=== PATIENT | male | born 1975 | race Caucasian/White ===

== ENCOUNTER 2018-03-29 23:24 | Emergency (ER) | payer MEDICARE ==
[2018-03-29] MEDS ORDERED: Etomidate 2 MG/ML 10 ML SDV IVPUSH ONE (23:49)
[2018-03-29] MEDS ORDERED: Rocuronium 10 MG/ML 10 ML Syringe IVPUSH ONE (23:50)
[2018-03-29] MEDS ORDERED: Labetalol 100 MG/20 ML MDV ONE (23:51)
[2018-03-29 23:53] LABS: CHLORIDE,CL 104 mEq/L (98-106); SODIUM,NA 142 mEq/L (136-145)
[2018-03-29] MEDS ORDERED: fentaNYL 100 MCG/2 ML SDV ONE (23:59)
[2018-03-30] MEDS ORDERED: Labetalol 100 MG/20 ML MDV IVPUSH ONE (00:05)
[2018-03-30] MEDS ORDERED: fentaNYL 100 MCG/2 ML SDV IVPUSH ONE (00:10)
[2018-03-30] MEDS ORDERED: Midazolam 1 MG/ML 2 ML SDV IVPUSH ONE (00:13)
[2018-03-30] MEDS ORDERED: Sodium Chloride 0.9% 250 ML ONE (00:27)
--- NOTE | 2018-03-30 01:04 | EDM.PDOC ---
ED HPI GENERAL MEDICAL PROBLEM - General Chief Complaint: Neuro Symptoms/Deficits Stated Complaint: unresponsive Time Seen by Provider: 03/29/18 23:25 Source of Information: Reports: EMS, Family History Limitations: Reports: Altered Mental Status - History of Present Illness INITIAL COMMENTS - FREE TEXT/NARRATIVE: Pt brought in by EMS after complaining of severe headache at home. Per he had headache and then stood up and fell to the floor unconscious. When EMS arrived he was unconscious and vomiting brown liquid. BP on scene was extremely elevated. Has history of untreated and uncontrolled hypertension. When arriving he is unresponsive, vomiting, right pupil was 5mm and fixed and the left is 1 mm and nonreactive. He has some decerebrate posturing to the upper extremities. Respirations are wet and maintaining his own sats with O2 at 6liters with sats of 98%. No purposeful movement noted. BP 280/120 on arrival here. EAvera activated. Pt has gurgling respirations. Pt was intubated with 7.5 mm ETT per EMS after 2 attempts. OG placement was done. Portable CXR did show good placement. Bilateral breathe sounds that were very wet noted. wilkerson placed with yellow returns, 2330 Dr. Messer from [facility] per phone accepted the pt to there facility. Report given. Labetolol was given per recommendation of Dr. Araujo with [facility]. CT was completed and showed large ICH with cerebral susu and brain stem compression per report of Dr. Hansen. [address] Messer at [facility]. 0045 Pt was transferred per life flight to [facility]. Please see reports for specific times and meds that were given on the [facility] report. - Related Data Allergies Allergy/AdvReac Type Severity Reaction Status Date / Time morphine Allergy Cannot Verified 03/29/18 23:25 Remember Home Meds: Home Meds . [No Known Home Meds] 03/29/18 [History] Past Medical History Cardiovascular History: Reports: Hypertension Social & Family History - Tobacco Use Smoking Status *Q: Current Status Unknown ED ROS GENERAL - Review of Systems Review Of Systems: Unable To Obtain ED EXAM, NEURO - Physical Exam Exam: See Below Exam Limited By: Respiratory Distress General Appearance: Other (unresponsive) Eye Exam: Bilateral Eye: Other (right was fixed at 5 mm and the left was 1 mm and unreactive.) Respiratory/Chest: Respiratory Distress, Crackles, Rales, Rhonchi Cardiovascular: Regular Rate, Rhythm, No Edema GI/Abdominal: Normal Bowel Sounds, Soft, Distended Neurological: No Response to Pain Skin Exam: Warm, Diaphoretic Course - Orders/Labs/Meds Orders: Active Orders 24 hr Category Date Time Status Chest 1V Frontal [CR] Routine Exams 03/30/18 Taken Head wo Cont [CT] Stat Exams 03/30/18 Taken Labs: Laboratory Tests 03/29/18 03/29/18 03/29/18 Range/Units 23:28 23:28 23:28 WBC 15.5 H (5.0-10.0) 10^3/uL RBC 3.65 L (4.50-6.00) 10^6/uL Hgb 10.8 L (14.0-18.0) g/dL Hct 31.3 L (40.0-54.0) % MCV 85.8 (82.0-94.0) fL MCH 29.6 (27.0-32.0) pg MCHC 34.5 (33.0-38.0) g/dL RDW Coeff of Mili 13.8 (11.0-15.0) % Plt Count 137 L (150-400) 10^3/uL Neut % (Auto) 63.0 (35-85) % Lymph % (Auto) 18.9 (10-55) % [place] % (Auto) 8.3 (0-16) % Eos % (Auto) 8.8 H (0-5) % Baso % (Auto) 1.0 (0-3) % Neut # (Auto) 9.77 H (1.80-7.00) 10^3/uL Lymph # (Auto) 2.93 (1.00-4.80) 10^3/uL [place] # (Auto) 1.28 H (0.00-0.80) 10^3/uL Eos # (Auto) 1.36 H (0.00-0.45) 10^3/uL Baso # (Auto) 0.15 10^3/uL PT 9.9 (9.7-12.3) SEC INR 0.95 (0.92-1.18) APTT 23.8 (23.2-32.3) SEC Sodium 142 (136-145) mEq/L Potassium 2.6 L* D (3.5-5.0) mEq/L Chloride 104 (98-106) mEq/L Carbon Dioxide 24 (21-32) mmol/L BUN 53 H D (7-18) mg/dL Creatinine 5.3 H* D (0.7-1.3) mg/dL Est Cr Clr Drug Dosing TNP Estimated GFR (MDRD) 12 L (>=60) mL/min Glucose 138 H D (75-99) mg/dL Calcium 8.3 L (8.4-10.1) mg/dL Total Bilirubin 1.3 H (0.0-1.0) mg/dL AST 40 H (15-37) U/L ALT 19 (12-78) U/L Alkaline Phosphatase 91 (46-116) U/L Lactate Dehydrogenase 768 H (100-190) U/L Creatine Kinase 205 (35-232) U/L Troponin I 0.585 H (0.00-0.06) ng/mL C-Reactive Protein 0.6 (0.2-0.8) mg/dL Total Protein 6.7 (6.4-8.2) g/dL Albumin 3.8 (3.4-5.0) g/dL Meds: Medications Discontinued Medications Generic Name Dose Route Start Last Admin Trade Name Papaq PRN Reason Stop Dose Admin Fentanyl Confirm 03/29/18 23:59 Sublimaze Administered 03/30/18 00:00 Dose 100 mcg .ROUTE .STK-MED ONE Mannitol Confirm 03/29/18 23:42 Mannitol 20% Administered 03/29/18 23:43 Dose 500 mls @ as directed .ROUTE .STK-MED ONE Sodium Chloride Confirm 03/30/18 00:27 Normal Saline Administered 03/30/18 00:28 Dose 250 mls @ as directed .ROUTE .STK-MED ONE Labetalol HCl Confirm 03/29/18 23:51 Normodyne Administered 03/29/18 23:52 Dose 100 mg .ROUTE .STK-MED ONE Departure - Departure Time of Disposition: 00:50 Disposition: DC/Tfer to Acute Hospital 02 Condition: Critical Clinical Impression: Hypertensive crisis, Hypokalemia, Decerebrate posture ICH (intracerebral hemorrhage) Qualifiers: Intracerebral hemorrhage etiology: nontraumatic Cerebral hemorrhage location: cerebral ventricle Laterality: right Qualified Code(s): I61.5 - Nontraumatic intracerebral hemorrhage, intraventricular Renal failure Qualifiers: Renal failure chronicity: acute Acute renal failure type: unspecified Qualified Code(s): N17.9 - Acute kidney failure, unspecified - Discharge Information - Problem List & Annotations (1) ICH (intracerebral hemorrhage) SNOMED Code(s): 320960482 Code(s): I61.9 - NONTRAUMATIC INTRACEREBRAL HEMORRHAGE, UNSPECIFIED Status : Acute Priority: High Qualifiers: Intracerebral hemorrhage etiology: nontraumatic Cerebral hemorrhage location: cerebral ventricle Laterality: right Qualified Code(s): I61.5 - Nontraumatic intracerebral hemorrhage, intraventricular (2) Decerebrate posture SNOMED Code(s): 40310858 Code(s): R29.3 - ABNORMAL POSTURE Status: Acute Priority: High (3) Hypertensive crisis SNOMED Code(s): 048904061 Code(s): I16.9 - HYPERTENSIVE CRISIS, UNSPECIFIED Status: Acute Priority : High (4) Hypokalemia SNOMED Code(s): 41886492 Code(s): E87.6 - HYPOKALEMIA Status: Acute Priority: High (5) Renal failure SNOMED Code(s): 05968193 Code(s): N19 - UNSPECIFIED KIDNEY FAILURE Status: Acute Qualifiers: Renal failure chronicity: acute Acute renal failure type: unspecified Qualified Code(s): N17.9 - Acute kidney failure, unspecified - Problem List Review Problem List Initiated/Reviewed/Updated: Yes - My Orders Last 24 Hours: My Active Orders 03/30/18 Chest 1V Frontal [CR] Routine Head wo Cont [CT] Stat - Assessment/Plan Last 24 Hours: My Active Orders 03/30/18 Chest 1V Frontal [CR] Routine Head wo Cont [CT] Stat Plan: transferred to [facility] per airflight. Report given to accepting physician Dr. Messer at [facility].
== END 2018-03-30 00:50 ==
LOC: CC.ED 23:24
DX: S06.309A Unspecified focal traumatic brain injury with loss of consciousness of unspecified duration, initial encounter (principal); I16.9 Hypertensive crisis, unspecified; I10 Essential (primary) hypertension; E87.6 Hypokalemia; N17.9 Acute kidney failure, unspecified; R29.3 Abnormal posture; Z88.5 Allergy status to narcotic agent; W18.39XA Other fall on same level, initial encounter
CPT/HCPCS: 36415; 70450; 71045; 80053; 82550; 83615; 84484; 85025; 85610; 85730; 86140; 96374; 96375; 99284; 99285; J2250; J3010; J3490; J7050